=== PATIENT | female | born 1980 | race Hispanic/Latino ===

== ENCOUNTER 2018-03-28 09:39 | Outpatient (CLI) | payer OTHER | END 2018-03-28 09:40 | disposition home or self-care (01) | LOC: DTY/OP 09:39 | PROVIDERS: ATTEND Surgery | DX: E66.01 Morbid (severe) obesity due to excess calories (principal) | CPT/HCPCS: 97802 ==

== ENCOUNTER 2018-04-13 00:27 | Outpatient (CLI) | payer SELFPAY ==
[2018-04-13 14:36] LABS: #Eosinphils 0.2 thou/uL (0.0-0.7); #Lymphocytes 2.9 thou/uL (1.20-3.40); #Monocytes 0.6 thou/uL (0.11-0.59); #Neutrophils 4.6 thou/uL (1.40-6.50); %Basophils 0.6 % (0.0-1.0); %Eosinophils 2.9 % (0.0-10.0); %Lymphocytes 34.4 % (21.0-51.0); %Monocytes 7.3 % (0.0-10.0); %Neutrophils 54.8 % (42.0-75.0); Hemoglobin 13.7 g/dL (12.0-16.0); Mean Corpuscular HGB CONC 34.2 g/dL (32.0-36.0); Mean Corpuscular Hemoglobin 30.6 pg (27.0-31.0); Mean Corpuscular Volume 89.3 fL (78.0-98.0); Mean Platelet Volume 6.9 fL (7.4-10.4); Platelet Count 272 thou/uL (130-400); RBC Distribution Width 12.4 % (11.5-14.5); Red Blood Cell (RBC) Count 4.48 mill/uL (4.20-5.40); White Blood Cell (WBC) Count 8.3 thou/uL (4.8-10.8)
[2018-04-13 14:41] LABS: BHCG - Serum Negative (NEGATIVE); Pregs Control Background? CLEAR/WHITE (CLR/WHITE); Pregs Control Bar Appear? YES (CONTROL BAR)
[2018-04-13 14:57] LABS: ALT (SGPT) 28 U/L (8-55); AST (SGOT) 19 U/L (5-34); Albumin 4.6 g/dL (3.5-5.0); Alkaline Phosphatase 60 U/L (40-150); Anion Gap 13 mmol/L (10-20); BUN (Urea Nitrogen) 16 mg/dL (7.0-18.7); Bilirubin, Direct 0.2 mg/dL (0.1-0.3); Bilirubin, Total 0.5 mg/dL (0.2-1.2); Calc. Creatinine Clearance 0 mL/min (70-130); Calcium 10.2 mg/dL (7.8-10.44); Carbon Dioxide 23 mmol/L (22-29); Chloride 106 mmol/L (98-107); Estimated GFR-MDRD 75; Globulin 2.8 g/dL (2.4-3.5); Glucose 97 mg/dL (70-105); Potassium 4.2 mmol/L (3.5-5.1); Protein, Total 7.4 g/dL (6.0-8.3); Sodium 138 mmol/L (136-145)
--- NOTE | 2018-04-13 15:01 | RAD ---
PA AND LATERAL CHEST XRAY: DATE: 04/13/2018. HISTORY: Preoperative evaluation. FINDINGS: The cardiac silhouette is at the upper limits of normal in size. Pulmonary vasculature is within nor mal limits. The lungs are clear. Minimal osteophytes are seen scattered within the thoracic spine. IMPRESSION: No acute cardiopulmonary process. POS: [facility]
== END 2018-04-13 00:28 | disposition home or self-care (01) ==
LOC: LABBT 00:27
PROVIDERS: ATTEND Surgery
DX: Z01.818 Encounter for other preprocedural examination (principal); E66.01 Morbid (severe) obesity due to excess calories
CPT/HCPCS: 71046; 80053; 80076; 83036; 84703; 85025; 93005; 93010

== ENCOUNTER 2018-04-13 17:00 | Inpatient (IN) | payer OTHER, SELFPAY ==
[2018-04-13 13:32] VITALS: BMI 46.6
[2018-04-21] MEDS ORDERED: Fentanyl 100 MCG/2 ML VIAL ONE ×4 (06:25→09:08)
[2018-04-21] MEDS ORDERED: Bupivacaine/Epinephrine 0.25% 30 ML VIAL ONE (06:48)
[2018-04-21] MEDS ORDERED: Heparin 5,000 UNITS/ML VIAL ONE (06:49)
[2018-04-21] MEDS ORDERED: Scopolamine 1.5 mg/72 hour Patch ONE (07:02)
--- NOTE | 2018-04-21 07:27 | HP ---
CHIEF COMPLAINT: Morbid obesity. HISTORY OF PRESENT ILLNESS: The patient is a 37-year-old female, who has been overweight for many years. She has attempted multiple weight loss programs without success. She is here for laparoscopic sleeve gastrectomy. PAST MEDICAL HISTORY: Significant for obesity, asthma. PAST SURGERIES: section x2, breast reduction, bilateral tubal ligation. MEDICATIONS: 1. Multivitamins. 2. Biotin. ALLERGIES: TO CODEINE. SOCIAL HISTORY: She is . No tobacco or alcohol. FAMILY HISTORY: Father of diabetes. Mother is alive and is in good health. PHYSICAL EXAMINATION: VITAL SIGNS: Height 62, weight 268, and body mass index 49. GENERAL: She is a well-developed, well-nourished female, in no apparent distress. HEENT: Good hair growth. No alopecia. Pupils are equal, round, and reactive. Extraocular motor intact. Pharynx is clear. Good dentition. NECK: Supple. No thyroid masses. No carotid bruits. LUNGS: Clear. HEART: Regular rate and rhythm. BREASTS: No palpable breast masses or lymphadenopathy. ABDOMEN: Soft, nondistended, and nontender. Good bowel sounds. No palpable masses or hernias. BACK: No spinal tenderness or deformity. EXTREMITIES: Good pulses. No pedal edema. ASSESSMENT: Morbid obesity. PLAN: Laparoscopic sleeve gastrectomy. CONSENT: I have discussed the planned procedure as well as risk of bleeding, infection, injury to esophagus, spleen, loops of bowel, need to open she understands and gives informed consent. Job ID: [id number]
[2018-04-21] MEDS ORDERED: Ondansetron PF 4 MG/2 ML Vial IVP PRN ×2 (08:30→09:29)
[2018-04-21] MEDS ORDERED: Dextrose 5% in Water 1,000 ML IV PRN (08:30)
[2018-04-21] MEDS ORDERED: hydrALAZINE 20 MG/ML VIAL SLOW IVP PRN (08:30)
[2018-04-21] MEDS ORDERED: diphenhydrAMINE 50 MG/ML VIAL IVP PRN (08:30)
[2018-04-21] MEDS ORDERED: Dextrose 50% Abboject 50 ML SYRINGE SLOW IVP PRN (08:30)
[2018-04-21] MEDS ORDERED: Hydrocodone-Acetamin 15 ML UDCUP PO PRN (08:30)
[2018-04-21] MEDS ORDERED: Promethazine HCl 25 MG/ML VIAL IM PRN ×2 (08:30→09:29)
[2018-04-21] MEDS ORDERED: diphenhydrAMINE 50 MG/ML VIAL IM/IV PRN (09:29)
[2018-04-21] MEDS ORDERED: diphenhydrAMINE 25 MG CAP PO PRN (09:29)
[2018-04-21] MEDS ORDERED: Zolpidem Tartrate 5 MG TAB PO PRN (09:29)
[2018-04-21] MEDS ORDERED: fentaNYL Citrate/PF 2,000 MCG in Sodium Chloride 0.9% 60 ML IV PRN (09:29)
--- NOTE | 2018-04-21 09:46 | OP ---
DATE OF PROCEDURE: 04/21/2018 PREOPERATIVE DIAGNOSIS: Morbid obesity. PROCEDURES PERFORMED: Laparoscopic sleeve gastrectomy, esophagogastroscopy. INDICATIONS: A 37-year-old female morbidly obese, who has attempted multiple weight loss programs without success. FINDINGS: A 38-E[place]ian bougie used. DESCRIPTION OF PROCEDURE: After informed consent was obtained, the patient was taken to the operating room, given general endotracheal anesthesia, placed in supine position. Abdomen was prepped and draped in usual fashion. Local anesthesia infiltrated subcutaneously and deep. A 12 mm incision was performed approximately 8 inches below the xiphoid slightly to the left. Veress needle inserted. Drop test performed. Pneumoperitoneum was created to a volume of 2 L of carbon dioxide. Utilizing a bladeless 12 mm trocar and 0-degree laparoscope, direct visual entry into the abdominal cavity was performed. Pneumoperitoneum was created to a pressure of 15 mmHg and the patient placed in steep reverse Trendelenburg position. Cayla liver retractor inserted. Left lobe of the liver retracted superiorly. The pylorus identified. A 12 mm port placed on the right beneath it and two 12s placed left subcostal. The omentum was taken off the greater curvature 5 cm from the pylorus utilizing the LigaSure. Short gastrics divided with LigaSure and left crura defined with the LigaSure. A 38-E[place]ian bougie inserted directed into the antrum. The linear 60 mm green load stapler used to divide the antrum to the bougie, gold load used along the bougie, and a series of blue used through the angle of His. The bougie removed. Intraoperative endoscopy was performed. The video endoscope inserted under direct vision and advanced into the sleeve. The staple line inspected. There was no bleeding. Staple line then tested by inflating the new stomach with pressurized air and water. There was no air leak. Stomach decompressed. Scope removed. The remnants of the stomach removed from the abdomen through the left lateral port site. The fascia closed with 0 Vicryl suture and the GraNee needle. The skin closed with interrupted 4-0 Rapide. Dermabond applied. The patient tolerated the procedure well, transferred to Recovery in good condition. Sponge and needle count verified correct x2. Job ID: [id number]
[2018-04-21] MEDS ORDERED: Ondansetron PF 4 MG/2 ML Vial ONE (10:25)
[2018-04-21] MEDS ORDERED: Rocuronium Bromide 10 MG/ML (10ML VIAL) ONE (11:05)
[2018-04-21] MEDS ORDERED: PHENYLEPHRINE-NS 100 MCG/ML 10 ML SYRINGE ONE (11:05)
[2018-04-21] MEDS ORDERED: Glycopyrrolate 0.2 MG/ML 5 ML SYRINGE ONE (11:05)
[2018-04-21] MEDS ORDERED: PROPOFOL 200 MG/20 ML VIAL ONE (11:05)
[2018-04-21] MEDS ORDERED: Lidocaine 1% PF 5 ML VIAL ONE (11:05)
[2018-04-21] MEDS: Pantoprazole 40 MG VIAL IVP SCH (11:08)
[2018-04-21] MEDS: Enoxaparin Sodium 40 MG/0.4 ML SYRINGE SC SCH (11:15)
[2018-04-21] MEDS ORDERED: Ketorolac Tromethamine 30 MG/ML VIAL IVP SCH (12:00)
[2018-04-21] MEDS: CEFAZOLIN 2 GM in Premix Bag 1 BAG IVPB SCH (14:24)
[2018-04-21] MEDS: D5 1/2 NS w/20 mEq KCL 1,000 ML IV SCH ×2 (19:27→20:04)
[2018-04-22] MEDS: CEFAZOLIN 2 GM in Premix Bag 1 BAG IVPB SCH (00:21)
[2018-04-22] MEDS: D5 1/2 NS w/20 mEq KCL 1,000 ML IV SCH ×2 (04:19→10:02)
[2018-04-22 05:22] LABS: #Lymphocytes 1.6 thou/uL (1.20-3.40); #Monocytes 1.1 thou/uL (0.11-0.59); #Neutrophils 10.6 thou/uL (1.40-6.50); %Eosinophils 0.2 % (0.0-10.0); %Lymphocytes 11.8 % (21.0-51.0); %Monocytes 8.2 % (0.0-10.0); %Neutrophils 79.9 % (42.0-75.0); Hemoglobin 12.6 g/dL (12.0-16.0); Mean Corpuscular HGB CONC 33.8 g/dL (32.0-36.0); Mean Corpuscular Hemoglobin 30.5 pg (27.0-31.0); Mean Corpuscular Volume 90.1 fL (78.0-98.0); Mean Platelet Volume 7.5 fL (7.4-10.4); Platelet Count 215 thou/uL (130-400); RBC Distribution Width 12.5 % (11.5-14.5); Red Blood Cell (RBC) Count 4.15 mill/uL (4.20-5.40); White Blood Cell (WBC) Count 13.3 thou/uL (4.8-10.8)
[2018-04-22 05:40] LABS: Anion Gap 13 mmol/L (10-20); BUN (Urea Nitrogen) 6 mg/dL (7.0-18.7); Calc. Creatinine Clearance 176 mL/min (70-130); Calcium 9.6 mg/dL (7.8-10.44); Carbon Dioxide 25 mmol/L (22-29); Chloride 106 mmol/L (98-107); Estimated GFR-MDRD 81; Glucose 107 mg/dL (70-105); Potassium 3.7 mmol/L (3.5-5.1); Sodium 140 mmol/L (136-145)
[2018-04-22] MEDS: Pantoprazole 40 MG VIAL IVP SCH (09:06)
[2018-04-22] MEDS: Enoxaparin Sodium 40 MG/0.4 ML SYRINGE SC SCH (09:06)
--- NOTE | 2018-04-22 10:14 | RAD ---
UPPER GI SERIES: History: Gastric sleeve placement. Technique: Gastrografin was given orally (15 ml). Spot images were obtained. Radiation dosimetry: 0.7 minutes, DAP 49.3 mGy*cm^2. FINDINGS: The esophagus is unremarkable. The ingested contrast passes the gastroesophageal junction extending i nto the gastric lumen. The lumen is compromised due to the surrounding sleeve. Contrast passes throug h the gastric lumen into the antrum and duodenum. No evidence of extravasation of contrast is seen. N o definite evidence of leaks seen. IMPRESSION: Normal post gastric sleeve upper GI series with no evidence of extravasation of contrast seen. Contra st passes through the gastric lumen into the duodenum. POS: [facility]
[2018-04-22] MEDS: Hydrocodone-Acetamin 15 ML UDCUP PO PRN ×2 (12:08→15:43)
[2018-04-22 15:34] VITALS: BP 109/72; TEMP 98.1
== END 2018-04-22 16:09 | disposition home or self-care (01) | DRG 621 ==
LOC: SURG A 04-21 05:58 → SJJU 04-21 10:18 → EDSTATUS 04-21 17:00
PROVIDERS: ADMIT Surgery; ATTEND Surgery
PROC: 0DB64Z3 Excision of Stomach, Percutaneous Endoscopic Approach, Vertical (ICD-10-PCS; principal; 2018-04-21)
PROC: 0DJ68ZZ Inspection of Stomach, Via Natural or Artificial Opening Endoscopic (ICD-10-PCS; 2018-04-21)
DX: E66.01 Morbid (severe) obesity due to excess calories (principal); J45.909 Unspecified asthma, uncomplicated; Z68.42 Body mass index [BMI] 45.0-49.9, adult; Z98.51 Tubal ligation status; Z98.890 Other specified postprocedural states; Z88.5 Allergy status to narcotic agent
CPT/HCPCS: 36415; 74241; 80048; 85025; 88307; 88312; 94760; C9113; J1644; J1650; J2001; J2405; J2704; J3010; J7050